=== PATIENT | female | born 1950 | race Caucasian/White ===

== ENCOUNTER 2020-06-12 10:00 | Outpatient (RCR) | payer MEDICARE, OTHER, SELFPAY ==
--- NOTE | 2020-03-16 15:35 | HP.PTEVAL ---
Patient's Visit Information CHARLA GONZALES is a 69 year old F referred to Physical Therapy by MANDY LARIOS with a diagnosis of LUMBAR RADICULOPATHY. Date of Evaluation: 03/16/20 Physical Therapist: Jeannie Garza PT, Cert MDT - Visit Plan Frequency: 2-3x /Week Duration: 4-6 Weeks Plan: PATIENT REQUESTING TO BE TREATED IN A PRIVATE TREATMENT ROOM. POSTURE CORRECTION/STRENGTHENING, INSTRUCTION IN APPROPRIATE BODY MECHANICS AND ACTIVITY MODIFICATIONS. DLS STARTING WITH A NEUTRAL SPINE PROGRESSING ROM TOLERATED. TIERRA LE ROM, STRETCHING AND STRENGTHENING. HEP INSTRUCTION. 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 Disability: NO. Present symptoms: RIGHT BUTTOCK AND THIGH PAIN. INTERMITTENT LOW BACK PAIN CENTRALLY. WHEN GOES TO BED AT NIGHT BOTH LEGS FEEL WRONG LIKE SOMETHING IS PINCHING - ALL THE WAY DOWN BOTH LEGS. PATIENT DENIES TIERRA LE NUMBNESS AND TINGLING. Present since: RIGHT HIP AND THIGH PAIN STARTED ABOUT A MONTH AGO. LOW BACK PAIN IS CHRONIC. Pain Scale: WORST 5/10, LEAST 1/10. Currently: 03/18. Commenced as a result of: NO APPARENT REASON OTHER THAN WALKING FAST ON THE [place] AND A LOT OF LIFTING/CARRING TOTES UP AND DOWN STEPS FOR XMAS. Symptoms at onset: RIGHT LATERAL HIP PAIN AT NIGHT IN [place]. Worse: STEPS. Better: PREDNISONE. Disturbed sleep: YES. Previous history/Previous treatment: LUMBAR DISKECTOMY 2007. H/O OF CHIROPRACTOR BEFORE AND AFTER BACK SURGERY BUT NONE FOR A FEW YEARS. PHYSICAL THERAPY. Treatment this episode: PREDNISONE - CURRENTLY ON AND HELPING. Coughing/sneezing/straining: NEGATIVE. Gait: NORMAL NOW BUT ABOUT A WEEK AGO TIME AND DISTANCE LIMITED. Difficulty initiating urinatin: NO. Accidents: NO. Unexplained weight loss: NO. Imaging: RECENT LUMBAR X-RAY THIS WEEK AND PATIENT HAS NOT RECEIVED RESULTS. NO HIP X-RAY. PMH: HTN, HIGH CHOLESTEROL. OTHER: UPON FURTHER QUESTIONING PATIENT REPORTS SHE FELL OFF THE LADDER FEEDING THE BIRDS. CAN'T REMEMBER IF IT WAS BEFORE OR AFTER THIS PAIN STARTED. - Objective Sitting/Standing Posture: POOR. Lordosis: NORMAL. Lateral shift: NO. Relevant shift: N/A. Active Correction of posture: NE. Other Observations: INDEP GAIT AND TRANSFERS WITH NO AD'S OR GROSS DEVIATIONS NOTED. Motor deficit: TIERRA LE'S 5/5 WITH MMT'ING EXCEPT HIPS 4/5. Sensory deficit: TIERRA LE LIGHT TOUCH SENSATION INTACT AND SYMMETRICAL. ROM deficit: TIGHT TIERRA LE HS'S AND GASTROC SOLEUS COMPLEX'S. Reflexes: 2/3 TIERRA LE'S. Dural Signs: NEGATIVE TIERRA LE'S. Lumbar mvmt loss: flex - MIN. ext - MOD - INCREASES LOW BACK. R SG - MOD - INCREASES LOW BACK PAIN - MILD. L SG - MOD - INCREASES LOW BACK PAIN - MILD. Core strength: POOR. Palpation: NO ACUTE SPINE OR HIP TENDERNESS. TREATMENT: NEUROMUSCULAR REEDUCATION - RETRAINING OF MVMT AND POSTURE FOR SITTING, LYING AND STANDING ACTIVITIES. - Goals Goal 1:: DECREASE C/O LOW BACK AND TIERRA LE SX'S. Goal 2:: IMPROVE LIFTING, SLEEP, STAIR CLIMBING AND HOMEMAKING FUNCTION. Goal Time Frame: 4-6 Weeks Goal 3:: INSTRUCT IN PROPHYLAXIS Goal Time Frame: 4-6 Weeks - Anticipated Interventions Patient/Client Instruction: Educate patient on: Condition, Plan of Care, Risk Factors, Benefits of Fitness Program For the Purpose of:: To improve self management Therapeutic Exercise to Include: Strength training, Body mechanics, Postural training, Flexibilty training, Neuromotor development, Dynamic Lumbar Stabilization For the Purpose of:: To decrease pain, To improve muscle performance and motor function, To increase tolerance to activity/condition/position, To improve ability of physical actions for home/community/work/leisure Cryotherapy (ice pack, ice massage): Yes Thermo therapy (hot pack): Yes Ultrasound (thermal/non thermal): Yes For the Purpose of:: To decrease pain, To decrease swelling/inflammation, To improve nutrient delivery to tissue Thank you for the opportunity to evaluate your patient. For Medicare and Medicare HMO plans, please review the plan of care and approve it. It will need to be FAXED BACK to us at [phone] for Medicare purposes. For Medicare only, by signing this I certify the plan of care. Please let me know if there are questions or concerns regarding this plan of care. Physician Signature: Date:
--- NOTE | 2020-04-05 11:18 | HP.PTREVAL_ITS ---
MANDY LARIOS, It has been my pleasure to treat CHARLA GONZALES over the last 7 visits for LUMBAR RADICULOPATHY. Please see the progress note below for an update on the physical therapy plan of care! Subjective: PATIENT REPORTS SHE IS ABOUT THE SAME. NO PAIN RIGHT NOW BUT HAVING SOME TINGLING ON THE OUTSIDE OF HER RIGHT FOOT (NO NEW). HEP ARE GOING GOOD. DANDRE REGAN FOR [facility]. FOLLOW UP SCHEDULED WITH DR. LARIOS PENDING MAY 03 2020. STATES SHE WOULD LIKE TO TRY MORE THERAPY VS CONSIDERING SURGERY AT THIS POINT. Objective/Function: BRIEF RE-ASSESMENT. PATIENT HAS MADE SMALL IMPROVEMENT WITH PT IN TERMS OF LESS LE SX'S AT NIGHT AND NO PAIN WITH LUMBAR ROM TESTING TODAY. SHE IS GOING TO FOLLOW UP WITH HER PCP UPON RETURN FROM [facility] AND MAY BE A GOOD CANDIDATE TO CONTINUE PT UPON RETURN. Lumbar mvmt loss: flex - MIN. ext - MOD. R SG - MOD. L SG - MOD. Core strength: POOR Plan Plan: HOLD CHART UNTIL PCP FOLLOW UP UPON RETURN FROM [place] IN ABOUT 3 WKS. PATIENT AGREEABLE. Goals Goal 1:: DECREASE C/O LOW BACK AND TIERRA LE SX'S. Goal Time Frame: 4-6 Weeks Goal Progress: Progressing Goal 2:: IMPROVE LIFTING, SLEEP, STAIR CLIMBING AND HOMEMAKING FUNCTION. Goal Time Frame: 4-6 Weeks Goal Progress: Progressing Goal 3:: INSTRUCT IN PROPHYLAXIS Goal Time Frame: 4-6 Weeks Goal Progress: Progressing Anticipated Interventions Patient/Client Instruction: Educate patient on: Condition, Plan of Care, Risk Factors, Benefits of Fitness Program For the Purpose of:: To improve self management Therapeutic Exercise to Include: Strength training, Body mechanics, Postural training, Flexibilty training, Neuromotor development, Dynamic Lumbar Stabilization For the Purpose of:: To decrease pain, To improve muscle performance and motor function, To increase tolerance to activity/condition/position, To improve ability of physical actions for home/community/work/leisure Cryotherapy (ice pack, ice massage): Yes Thermo therapy (hot pack): Yes Ultrasound (thermal/non thermal): Yes For the Purpose of:: To decrease pain, To decrease swelling/inflammation, To improve nutrient delivery to tissue Please do not hesitate to contact me at [phone] by phone or if you have questions or concerns regarding this new plan of care! Sincerely, Jeannie Garza, PT, Cert MDT
--- NOTE | 2020-05-16 13:57 | HP.PTREVAL ---
MANDY LARIOS, It has been my pleasure to treat CHARLA GONZALES over the last 8 visits for LUMBAR RADICULOPATHYAND RIGHT LEG APIN. Please see the progress note below for an update on the physical therapy plan of care! Subjective: PATIENT REPORTS SHE IS DOING WORSE. STARTED HAVING REALLY BAD RIGHT KNEE PAIN (THAT IS GRADUALLY GETTING BETTER). WENT TO PCP DR. ROBERTS. NORMAL R KNEE X-RAY PER PATIENT REPORT. NEW RIGHT HIP PAIN TOO. OVER-ALL PATIENT REPORTS SHE IS WORSE THAN BEFORE SHE LEFT FOR [place]. KNEE PAIN DID START IN [place]. DROVE TO [place] AND SX'S STAYED ABOUT THE SAME IN [place]. OK SITTING BUT DIFFICULTY INIATING GAIT. TOO MUCH WALKING INCREASED SX'S TOO. HAD TO MAKE A QUICK TRIP BACK HOME FOR [id number] THAT ENDED UP PASSING AWAY. THEN BACK TO [place] AND RECENTLY BACK HOME. CURRENTLY HAVING VERY LITTLE LOW BACK PAIN AND TIERRA LOW BACK FELT REALLY TIRED AND ACHY LAST NIGHT. CLEARING OUT [id number] [facility]. MOST PAIN STARTS IN RIGHT HIP, GOES INTO THIGH AND KNEE AND BELOW KNEE BUT HASN'T BEEN NOTICING MORE FOOT SX'S BUT STIFF MILD FOOT SX'S. TWO TRIPS DOWN AND BACK TO [place] IN LAST FEW MONTHS. PATIENT REPORTS SHE TRIED TO GO FOR A WALK WITH HER FRIENDS May AND WENT 2 MILES BUT SHE WAS HURTING IN HER RIGHT LEG BY THE END AND NOW SHE CAN NOT DO REVERSE CLAMS ON THE RIGHT LE (ABLE TO DO THIS EX NO PROBLEM UNTIL RECENTLY). Objective/Function: PATIENT WAS SEEN TODAY FOR RE-ASSESSMENT OF PROGRESS TOWARD THE SET PT GOALS AND THE NEED FOR FURTHER PHYSICAL THERAPY VS READINESS FOR DISCHARGE. PATIENT HAS C/O INCREASED AND NEW PAINS SINCE LAST PT VISIT BEFORE TRIPS TO [place]. SHE IS A GOOD CANDIDATE TO TRY AQUATIC THERAPY AND SHE IS AGREEABLE. UPON EXAM TODAY: Sitting/Standing Posture: POOR. Lordosis: NORMAL. Lateral shift: NO. Relevant shift: N/A. Active Correction of posture: NE. Other Observations: INDEP GAIT INTO PT WITH DECREASED CADANCE AND MILD LIMP ON R LE. Motor deficit: TIERRA LE'S 5/5 WITH MMT'ING EXCEPT HIPS 4/5. Sensory deficit: TIERRA LE LIGHT TOUCH SENSATION INTACT AND SYMMETRICAL. ROM deficit: TIGHT TIERRA LE HS'S AND GASTROC SOLEUS COMPLEX'S. Dural Signs: NEGATIVE TIERRA LE'S. Lumbar mvmt loss: flex - MIN. ext - MOD - INCREASES L LOW BACK. R SG - MOD - NE. L SG - MOD - INCREASES L LOW BACK PAIN. Core strength: POOR. Palpation: NO ACUTE SPINE OR HIP TENDERNESS. OTHER: HOME INSTRUCTIONS GIVEN TO REST FROM WALKING AND CONTINUE HEP TOLERATED. Plan Plan: AQUATIC THERAPY FOR PAIN RELEIF, POSTURE CORRECTION/STRENGTHENING, INSTRUCTION IN APPROPRIATE BODY MECHANICS AND ACTIVITY MODIFICATIONS. DLS STARTING WITH A NEUTRAL SPINE PROGRESSING ROM TOLERATED. TIERRA LE ROM, STRETCHING AND STRENGTHENING. HEP INSTRUCTION. Goals Goal 1:: DECREASE C/O LOW BACK AND TIERRA LE SX'S. Goal Time Frame: 4-6 Weeks Goal Progress: Not Progressing Goal 2:: IMPROVE LIFTING, SLEEP, STAIR CLIMBING AND HOMEMAKING FUNCTION. Goal Time Frame: 4-6 Weeks Goal Progress: Not Progressing Goal 3:: INSTRUCT IN PROPHYLAXIS Goal Time Frame: 4-6 Weeks Goal Progress: Not Progressing Anticipated Interventions Patient/Client Instruction: Educate patient on: Condition, Plan of Care, Risk Factors, Benefits of Fitness Program For the Purpose of:: To improve self management Therapeutic Exercise to Include: Strength training, Body mechanics, Postural training, Flexibilty training, Neuromotor development, Dynamic Lumbar Stabilization For the Purpose of:: To decrease pain, To improve muscle performance and motor function, To increase tolerance to activity/condition/position, To improve ability of physical actions for home/community/work/leisure Cryotherapy (ice pack, ice massage): Yes Thermo therapy (hot pack): Yes Ultrasound (thermal/non thermal): Yes For the Purpose of:: To decrease pain, To decrease swelling/inflammation, To improve nutrient delivery to tissue Please do not hesitate to contact me at [phone] by phone or if you have questions or concerns regarding this new plan of care! Sincerely, Jeannie Garza, PT, Cert MDT
--- NOTE | 2020-06-12 10:35 | HP.PTDCSUM ---
It has been my pleasure to treat CHARLA GONZALES referred by MANDY LARIOS, with the diagnosis of LUMBAR RADICULOPATHYAND RIGHT LEG APIN for a total of 18 visit(s). Discharge Date: Please see the following information for a summary of their discharge status. Subjective: PATIENT REPORTS SHE STILL HAS PAIN IN HER HIP DOWN TO HER KNEE ON THE RIGHT. REPORTS IT IS GETTING STIFFER AND IT IS HARD TO GO DOWN THE STEPS. OK IN SITTING BUT SOON SHE PUTS WEIGHT ON IT IT HURTS. ONCE SHE GETS GOING SHE IS OK BUT HARD TO INITIATE GAIT AFTER SITTING. PAIN IN BOTH KNEES SOMETIMES BUT RIGHT SIDE IS THE MAIN PROBLEM. GETTING UP TO 7 OR 8/10 PAIN AT TIMES. RIGHT HIP/THIGH Pain Intensity (Out of 10): 1 Tailbone Pain Intensity (Out of 10): 0 % Improvement: 35 Objective/Function: PATIENT WAS SEEN TODAY FOR RE-ASSESSMENT OF PROGRESS TOWARD THE SET PT GOALS AND THE NEED FOR FURTHER PHYSICAL THERAPY VS READINESS FOR DISCHARGE. PATIENT IS NOT IMPROVING AND SHE FEELS HER RIGHT HIP IS GETTING STIFFER. WE HAVE TRIED BOTH LAND AND WATER PT WITHOUT SUCCESS. UPON EXAM TODAY: INDEP GAIT INTO PT WITH DECREASED CADANCE AND MILD LIMP ON R LE. NO ASSISTIVE DEVICES. Motor deficit: TIERRA LE'S 5/5 WITH MMT'ING EXCEPT HIPS 4/5 AND R HIP IR 4-/5. Sensory deficit: TIERRA LE LIGHT TOUCH SENSATION INTACT AND SYMMETRICAL. ROM deficit: TIGHT TIERRA LE HS'S AND GASTROC SOLEUS COMPLEX'S. RIGHT ER ALSO TIGHTER THAN LEFT. Dural Signs: NEGATIVE TIERRA LE'S. Lumbar mvmt loss: flex - MIN. ext - MOD. R SG - MOD. L SG - MOD. PATIENT DENIES ANY CHANGE IN SX'S WITH LUMBAR ROM TESTING TODAY. Core strength: POOR. Palpation: NO ACUTE SPINE OR HIP TENDERNESS. OTHER: POSITIVE FELA RIGHT. Goal 1:: DECREASE C/O LOW BACK AND TIERRA LE SX'S. Goal Progress: Not Progressing Goal 2:: IMPROVE LIFTING, SLEEP, STAIR CLIMBING AND HOMEMAKING FUNCTION. Goal Progress: Not Progressing Goal 3:: INSTRUCT IN PROPHYLAXIS Goal Progress: Not Progressing Plan: D/C. PHYSICIAN FOLLOW UP RECOMMENDED. PATIENT AGREEABLE. If there are questions or concerns regarding this patient's physical therapy, please feel free to call me at [phone]. Thank you for the referral of this patient. Sincerely, Jeannie Garza PT, Cert MDT
== END 2020-06-12 19:00 | disposition home or self-care (01) ==
LOC: PT 10:00
DX: M54.16 Radiculopathy, lumbar region (principal); M79.604 Pain in right leg
CPT/HCPCS: 97035; 97110; 97112; 97113; 97162; 97164; 97530